=== PATIENT | female | born 1960 | race African-American/Black ===

== ENCOUNTER 2016-08-18 12:25 | Emergency (ER) | payer BC ==
[~2016-08-18] VITALS: Ht 170.2 cm; Wt 78.5 kg
[~2016-08-18 12:25] MED LIST: ALBU8.5H6 INH; MONT10TA9 PO
[2016-08-18 13:35] LABS: BASO # 0.1 x10^3/uL (0.0-0.2); BASO % 1 % (0-3); EOS % 5 % (0-3); HEMATOCRIT 38.2 % (36.0-47.0); HEMOGLOBIN 12.7 g/dL (12.0-15.5); LYMPH # 2.1 x10^3/uL (1.0-4.8); LYMPH % 31 % (24-48); MEAN CORPUSCULAR HEMOGLOBIN 24 pg (25-35); MEAN CORPUSCULAR HGB CONC 33 g/dL (31-37); MEAN CORPUSCULAR VOLUME 73 fL (79-100); MONO % 8 % (0-9); NEUT % 55 % (31-73); PLATELET COUNT 248 x10^3/uL (140-400); RED BLOOD COUNT 5.23 x10^6/uL (3.50-5.40); WHITE BLOOD COUNT 6.9 x10^3/uL (4.0-11.0)
[2016-08-18 13:36] LABS: BILIRUBIN,URINE NEGATIVE (NEG); GLUCOSE,URINE NEGATIVE (NEG); NITRITE,URINE NEGATIVE (NEG); PROTEIN,URINE NEGATIVE (NEG-TRACE); UROBILINOGEN,URINE 0.2 mg/dL (0.2 mg/dL)
[2016-08-18 13:47] LABS: CREATININE 0.9 mg/dL (0.6-1.0); GFR 78.4; POTASSIUM 3.7 mmol/L (3.5-5.1)
[2016-08-18 13:51] LABS: BACTERIA,URINE MODERATE /HPF (0-FEW); SQUAMOUS EPITHELIAL CELL,UR MOD /LPF
[2016-08-18] MEDS ORDERED: CONTRAST GIVEN MC PRN (14:15)
[2016-08-18] MEDS ORDERED: IOHEXOL 300 MG/ML 75 ML VIAL IV ONE (14:15)
--- NOTE | 2016-08-18 14:40 | RAD ---
Indication lower abdominal pain for approximately one week. Axial images through the abdomen and pelvis were obtained. 75 cc of Omnipaque 300 was administered intravenously. No oral contrast was administered. No prior CT imaging of the abdomen or pelvis is available. The lung bases are clear. There is a small hernia in the left groin containing only fat and appearing uncomplicated. The liver and spleen appear normal. The gallbladder is largely contracted but grossly normal. No pancreatic abnormality is seen. The adrenal glands and kidneys appear normal. A mass inflammatory process or acute finding in the abdomen is not seen. The appendix is seen in the right lower quadrant and appears normal. No mass or definite infectious or acute finding is seen in the pelvis. There are some degenerative changes in the lumbar spine. IMPRESSION: No acute or significant finding seen in the abdomen or pelvis
[2016-08-18] MEDS ORDERED: CIPR250T30 PO (14:49)
--- NOTE | 2016-08-18 14:49 | PHYS DOC ---
Past Medical History Past Medical History: Asthma, UTI, Other Additional Past Medical Histor: seasonal allergies Past Surgical History: Hysterectomy Alcohol Use: Occasionally Drug Use: None Adult General Chief Complaint Chief Complaint: ABDOMINAL PAIN HPI HPI Patient is a 55 year old female who presents with abdominal pain. The patient reports 3 day history of lower abdominal pain radiating to lower back. Denies fevers/chills, nausea, vomiting, diarrhea, constipation, dysuria, hematuria, vaginal bleeding, discharge. Denies previous history of similar symptoms. no abdominal surgeries. PCP is Dr. Morales. Review of Systems Review of Systems Constitutional: Denies fever or chills Eyes: Denies change in visual acuity HENT: Denies nasal congestion or sore throat Respiratory: Denies cough or shortness of breath Cardiovascular: Denies chest pain or edema GI: Reports abdominal pain, denies nausea, vomiting, bloody stools or diarrhea : Denies dysuria or hematuria Musculoskeletal: Denies back pain or joint pain Integument: Denies rash or skin lesions Neurologic: Denies headache, focal weakness or sensory changes Current Medications Current Medications Current Medications Medications (Trade) Dose Ordered Sig/Elsa Start Time Stop Time Status Last Admin Dose Admin Info (Do NOT chart on this entry -- for MONITORING) 1 each PRN DAILY PRN 08/18/16 14:15 08/18/16 15:24 DC Iohexol (Omnipaque 300 Mg/ml) 75 ml 1X ONCE 08/18/16 14:15 08/18/16 14:16 DC 08/18/16 14:23 75 ML Allergies Allergies Allergies Coded Allergies Type Severity Reaction Last Updated Verified No Known Drug Allergies 07/25/14 No Physical Exam Physical Exam Constitutional: Well developed, well nourished, no acute distress, non-toxic appearance. HENT: Normocephalic, atraumatic, bilateral external ears normal, oropharynx moist, nose normal. Eyes: PERRLA, EOMI, conjunctiva normal, no discharge. Neck: supple, no stridor. Cardiovascular: RRR, no murmurs, no edema. Lungs & Thorax: LCTAB, no wheezing, no respiratory distress. Abdomen: normal bowel sounds, soft, RLQ & LLQ tenderness without rebound/ guarding, no masses or pulsatile masses, nondistended. Skin: Warm, dry, no erythema, no rash. Back: No CVA tenderness. Extremities: No tenderness, no edema. Neurologic: Alert and oriented X 3, no focal deficits noted. Psychologic: Affect normal, judgement normal, mood normal. Current Patient Data Vital Signs Vital Signs Date Time Temp Pulse Resp B/P (MAP) Pulse Ox O2 Delivery O2 Flow Rate FiO2 08/18/16 15:02 70 21 153/75 (101) 96 08/18/16 13:32 Room Air 08/18/16 13:04 97.7 97.7 Lab Values Laboratory Tests Test 08/18/16 13:05 White Blood Count 6.9 x10^3/uL (4.0-11.0) Red Blood Count 5.23 x10^6/uL (3.50-5.40) Hemoglobin 12.7 g/dL (12.0-15.5) Hematocrit 38.2 % (36.0-47.0) Mean Corpuscular Volume 73 fL (79-100) L Mean Corpuscular Hemoglobin 24 pg (25-35) L Mean Corpuscular Hemoglobin Concent 33 g/dL (31-37) Red Cell Distribution Width 16.0 % (11.5-14.5) H Platelet Count 248 x10^3/uL (140-400) Neutrophils (%) (Auto) 55 % (31-73) Lymphocytes (%) (Auto) 31 % (24-48) Monocytes (%) (Auto) 8 % (0-9) Eosinophils (%) (Auto) 5 % (0-3) H Basophils (%) (Auto) 1 % (0-3) Neutrophils # (Auto) 3.8 x10^3uL (1.8-7.7) Lymphocytes # (Auto) 2.1 x10^3/uL (1.0-4.8) Monocytes # (Auto) 0.6 x10^3/uL (0.0-1.1) Eosinophils # (Auto) 0.3 x10^3/uL (0.0-0.7) Basophils # (Auto) 0.1 x10^3/uL (0.0-0.2) Urine Collection Type Unknown Urine Color Yellow Urine Clarity Clear Urine pH 6.0 Urine Specific Sullivan 1.020 Urine Protein Negative mg/dL (NEG-TRACE) Urine Glucose (UA) Negative mg/dL (NEG) Urine Ketones (Stick) Negative mg/dL (NEG) Urine Blood Trace (NEG) Urine Nitrite Negative (NEG) Urine Bilirubin Negative (NEG) Urine Urobilinogen Dipstick 0.2 mg/dL (0.2 mg/dL) Urine Leukocyte Esterase Moderate (NEG) Urine RBC 1-2 /HPF (0-2) Urine WBC 11-20 /HPF (0-4) Urine Squamous Epithelial Cells Mod /LPF Urine Bacteria Moderate /HPF (0-FEW) Urine Mucus Mod /LPF Sodium Level 142 mmol/L (136-145) Potassium Level 3.7 mmol/L (3.5-5.1) Chloride Level 104 mmol/L (98-107) Carbon Dioxide Level 30 mmol/L (21-32) Anion Gap 8 (6-14) Blood Urea Nitrogen 22 mg/dL (7-20) H Creatinine 0.9 mg/dL (0.6-1.0) Estimated GFR (Cockcroft-Gault) 78.4 Glucose Level 73 mg/dL (70-99) Calcium Level 9.0 mg/dL (8.5-10.1) Laboratory Tests 08/18/16 13:05 Laboratory Tests 08/18/16 13:05 EKG EKG [] Radiology/Procedures Radiology/Procedures PROCEDURE: CT ABD PELV W/ IV CONTRST ONLY Indication lower abdominal pain for approximately one week. Axial images through the abdomen and pelvis were obtained. 75 cc of Omnipaque 300 was administered intravenously. No oral contrast was administered. No prior CT imaging of the abdomen or pelvis is available. The lung bases are clear. There is a small hernia in the left groin containing only fat and appearing uncomplicated. The liver and spleen appear normal. The gallbladder is largely contracted but grossly normal. No pancreatic abnormality is seen. The adrenal glands and kidneys appear normal. A mass inflammatory process or acute finding in the abdomen is not seen. The appendix is seen in the right lower quadrant and appears normal. No mass or definite infectious or acute finding is seen in the pelvis. There are some degenerative changes in the lumbar spine. IMPRESSION: No acute or significant finding seen in the abdomen or pelvis DICTATED and SIGNED BY: KENZIE BARFIELD MD DATE: 08/18/16 1429[] Course & Med Decision Making Course & Med Decision Making Pertinent Labs and Imaging studies reviewed. (See chart for details) The patient presents with abdominal pain. She declined need for pain medication. Obtained labs, urine, CT. Found to have urinary tract infection with no other serious findings identified. The patient felt well and was controlled with discharge home. Gave prescription for Cipro. Recommend rest, by mouth hydration, Tylenol as needed for pain. Follow-up with Dr. Morales in primary care clinic in 2-3 days if not improving. Return to the emergency department for high fever, severe abdominal pain or flank pain, uncontrolled vomiting, any otherwise worsening condition. Discharged home in stable condition. [] Dragon Disclaimer Dragon Disclaimer This electronic medical record was generated, in whole or in part, using a voice recognition dictation system. Departure Departure Impression: Primary Impression: Urinary tract infection Disposition: HOME, SELF-CARE Condition: STABLE Referrals: OTTO MORALES MD (PCP) Patient Instructions: Urinary Tract Infection, [id number] Additional Instructions: You were seen in the emergency department today for abdominal pain. Tests did not show any serious cause of symptoms. Urine test did show urinary tract infection. Please take the prescribed antibiotic to treat the infection. Be sure to drink plenty of fluids to stay hydrated. Take Tylenol or ibuprofen as needed for pain. Follow-up with Dr. Morales in the primary care clinic in 2-3 days if not improving. Return to the emergency department for high fever, severe abdominal pain or flank pain, uncontrolled vomiting, any otherwise worsening condition. Scripts Ciprofloxacin Hcl (CIPRO) 250 Mg Tablet 1 TAB PO BID, #10 TAB Prov: BHARTI MYERS MD 08/18/16 BHARTI MYERS MD August 18, 2016 14:49
[2016-08-18 15:02] VITALS: BP 153/75
== END 2016-08-18 15:23 | disposition home or self-care (01) ==
LOC: ER 14:14
DX: N39.0 Urinary tract infection, site not specified (principal); J45.909 Unspecified asthma, uncomplicated; Z87.440 Personal history of urinary (tract) infections; Z90.710 Acquired absence of both cervix and uterus
CPT/HCPCS: 36415; 74177; 80048; 81001; 85027; 99285; Q9967; 87086

== ENCOUNTER → 2021-04-19 | Outpatient (CLI) | payer BC ==
[~2021-04-19] MED LIST changes: +CIPR250T30 PO; +MONT10TA49 PO; -MONT10TA9 PO
--- NOTE | 2021-04-19 15:44 | RAD ---
Bilateral digital screening 2-D and 3-D (digital breast tomosynthesis) mammogram: Reason for examination: Routine screening. Comparison: Mammogram from 09/11/2018. Interpretation was made with the benefit of CAD. FINDINGS: Breast density: Category B. There are scattered areas of fibroglandular density. No suspicious breast mass, malignant appearing calcifications, or architectural distortion is seen. IMPRESSION: No evidence of malignancy. Assessment: BI-RADS 1. Negative. Recommendation: Routine screening mammograms. The patient will receive a letter with the results in the mail. Patient information will be entered i nto the mammography reminder system with a target recall date for the next mammogram. A reminder brianna er will be generated. Electronically signed by: Lenore Rogers MD (04/19/2021 3:41 PM) [id number]
== END ==
LOC: MAMMO 12:56
PROVIDERS: ATTEND Family Medicine
DX: Z12.31 Encounter for screening mammogram for malignant neoplasm of breast (principal)
CPT/HCPCS: 77063; 77067

== ENCOUNTER → 2021-08-13 | Day surgery (SDC) | payer BC ==
[~2021-08-13] VITALS: Ht 170.2 cm; Wt 84.0 kg
[~2021-08-13] MED LIST changes: +HYDROmorphone 2 MG/ML INJ. IVP PRN; +IV RINGERS,LACTATED 1000ML 1,000 ML IV SCH; +MORPHINE SULFATE 2 MG/ML INJ. IVP PRN; +PROCHLORPERAZINE 10 MG/2 ML VIAL. IVP PRN; +PROPOFOL 10 MG/ML (20ML) VIAL. IV ONE; +fentaNYL PF VIAL 100 MCG/2 ML VIAL IVP PRN
[2021-08-13 08:47] VITALS: BP 152/84
--- NOTE | 2021-08-13 09:29 | PDOC2 ---
CONSULT Date of Consult Date of Consult DATE: 08/13/21 TIME: 09:26 Reason for Consult Reason for Consult: History of colon polyps History of Present Illness Reason for Visit: 60 year old Female is seen for surveillance colonosocpy with prior history of colon polyps. No melena and/or hematochezia is noted. Weight and appetite are stable. No constipatoin and/or diarrhea is present. She otherwise is without additional complaints. Past Medical History Cardiovascular: HTN Pulmonary: Asthma GI: Diverticulosis Past Surgical History Past Surgical History: Hysterectomy Family History Family History: Diabetes, Hypertension, Stroke Social History No ALCOHOL: none Current Medications Current Medications Current Medications Fentanyl Citrate (Fentanyl 2ml Vial) 25 mcg PRN Q5MIN PRN IVP MILD PAIN 1-3; Start 08/13/21 at 06:00; Stop 08/14/21 at 05:59 Fentanyl Citrate (Fentanyl 2ml Vial) 50 mcg PRN Q5MIN PRN IVP MODERATE PAIN 4- 6; Start 08/13/21 at 06:00; Stop 08/14/21 at 05:59 Morphine Sulfate (Morphine Sulfate) 1 mg PRN Q10MIN PRN IVP SEVERE PAIN 7-10; Start 08/13/21 at 06:00; Stop 08/14/21 at 05:59 Ringer's Solution 1,000 ml @ 30 mls/hr Q24H IV Last administered on 08/13/21at 08:54; Start 08/13/21 at 06:00; Stop 08/13/21 at 17:59 Hydromorphone HCl (Dilaudid) 0.5 mg PRN Q10MIN PRN IVP SEVERE PAIN 7-10, 2nd CHOICE; Start 08/13/21 at 06:00; Stop 08/14/21 at 05:59 Prochlorperazine Edisylate (Compazine) 5 mg PACU PRN PRN IVP NAUSEA, MRX1; Start 08/13/21 at 06:00; Stop 08/14/21 at 05:59 Active Scripts Active Cipro (Ciprofloxacin Hcl) 250 Mg Tablet 1 Tab PO BID Reported Albuterol Sulfate Hfa Inhaler (Albuterol Sulfate) 8.5 Gm Hfa.aer.ad 2 Puff INH Q4HRS Montelukast Sodium Tablet (Montelukast Sodium) 10 Mg Tablet 1 Tab PO DAILY Allergies Allergies: Coded Allergies: No Known Drug Allergies (Unverified , 07/25/14) ROS Gastrointestinal: Yes Constipation Physical Exam General: Alert, Oriented X3 Lungs: Clear to auscultation Heart: Normal S1, Normal S2 Abdomen: Normal bowel sounds, Soft, No tenderness Vitals VITALS Vital Signs Date Time Temp Pulse Resp B/P (MAP) Pulse Ox O2 Delivery O2 Flow Rate FiO2 08/13/21 08:47 97.9 71 20 96 97.9 Assessment/Plan Assessment/Plan History of colon polyps- surveillance exam is recommended at this time. R/B discussed with patient who is willing to proceed. SHANNEN CASAREZ MD Aug 13, 2021 09:29
[2021-08-13 10:15] VITALS: BP 155/85
== END | disposition home or self-care (01) ==
LOC: ENDOS 08:23
PROVIDERS: ATTEND Internal Medicine Gastroenterology
DX: Z12.11 Encounter for screening for malignant neoplasm of colon (principal); K64.0 First degree hemorrhoids; K63.89 Other specified diseases of intestine; K57.30 Diverticulosis of large intestine without perforation or abscess without bleeding; I10 Essential (primary) hypertension; J45.909 Unspecified asthma, uncomplicated; E78.00 Pure hypercholesterolemia, unspecified; Z86.010 Personal history of colon polyps; Z79.899 Other long term (current) drug therapy; Z90.710 Acquired absence of both cervix and uterus; Z98.890 Other specified postprocedural states; Z72.89 Other problems related to lifestyle; Z82.49 Family history of ischemic heart disease and other diseases of the circulatory system; Z83.3 Family history of diabetes mellitus
CPT/HCPCS: 45378; J2704